=== PATIENT | male | born 1980 | race Caucasian/White ===

== ENCOUNTER 2016-11-22 20:00 | Emergency (ER) | payer MEDICAID, OTHER ==
[~2016-11-22] VITALS: Ht 170.2 cm; Wt 71.4 kg
[~2016-11-22 20:00] MED LIST: ALBU18HF INHALATION; ALBU8.5H3 INH; HYDR-3498 PO; MED4DP PO; OXYC-281 PO; RTPRO NEB
[2016-11-22 20:11] VITALS: Ht 170.2 cm; Wt 71.4 kg
--- NOTE | 2016-11-22 21:32 | ERD ---
ER Documentation Chief Complaint Date/Time DATE: 11/22/16 TIME: 21:25 Chief Complaint Out of lisinopril, ativan, zoloft, and adderall. Acting appropriate HPI 36 y/o male presents to ED for medication refill. States that he ran out of Zoloft, Ativan, Adderall, lisinopril. Added that he has an appointment with his physician who prescribes these medication this coming week but he needs at least 3 days of supply for this because he was told by the pharmacy to go to the ER and have an ER provider prescribe you with the said medications. Denies visual/auditory hallucinations/delusions. Not suicidal. Not homicidal. Has the capacity to decide for himself. Stated that he has good support system at home. Denies headache, loss of consciousness, dizziness, blurry vision, changes in vision, photophobia, facial pain, ear pain, throat pain, difficulty swallowing, neck pain, shoulder pain, chest pain, cough, hemoptysis, abdominal pain, back pain, loss of appetite, nausea, vomiting, hematochezia, diarrhea, constipation, urinary symptoms, bladder and bowel incontinences, extremity weakness, extremity tenderness, numbness or tingling sensation, difficulty walking, recent travel, recent exposure to illness, recent antibiotic use in the last 3 months, fever, chills. Allergy: NKA PMH: Hypertension, depression, anxiety, PTSD, ADHD (diagnosed at age of [age] years old). Medications: Ativan 2 mg twice daily, Adderall 40 mg twice daily, Zoloft 150 mg daily, lisinopril 20 mg daily. Surgery: Denies. Family history: Denies. 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 ROS All systems reviewed and are negative except as per history of present illness. Medications Home Meds Active Scripts Lisinopril* (Lisinopril*) 20 Mg Tablet, 20 MG PO DAILY, #7 TAB Prov:CLAUDIA SANTANA F 11/22/16 Sertraline Hcl* (Zoloft*) 100 Mg Tablet, 150 MG PO DAILY for 7 Days, #7 TAB Prov:PASILABANCLAUDIA F 11/22/16 Albuterol Sulfate* (Ventolin HFA*) 18 Gm Hfa.aer.ad, 2 PUFF INHALATION Q4H, #1 INHALER Prov:PRIETO BAUTISTA MD 11/18/15 Albuterol Sulfate* (Proair HFA*) 8.5 Gm Hfa.aer.ad, 2 PUFF INH Q4, #1 INHALER Prov:TRACY JENSEN 11/18/15 Albuterol Sulfate* (Proventil* Neb) 0.083% Neb, 2.5 MG NEB Q4 Y for SHORTNESS OF BREATH, #30 EA Prov:TRACY JENSEN 11/18/15 Methylprednisolone* (Medrol* DOSE PACK) 4 Mg/Dose-Pack Tab.ds.pk, 4 MG PO . DIRECTED for 6 Days, PACKET Prov:TRACY JENSEN 11/18/15 Oxycodone Hcl-Acetaminophen* (Percocet*) 5-325 Mg Tablet, 1 TAB PO Q4H Y for PAIN for 3 Days, TAB Prov:TRACY JENSEN 11/18/15 Hydrocodone Bit-Acetaminophen* ([place]*) 5-325 Mg Tab, 1 TAB PO Q6 Y for PAIN, # 7 TAB Prov:LEE ASIF MD 11/12/15 Allergies Allergies: Coded Allergies: chlorpromazine (Unverified Allergy, Unknown, 11/22/16) divalproex sodium (Unverified Allergy, Unknown, 11/22/16) quetiapine (Unverified Allergy, Unknown, 11/22/16) PMhx/Soc Medical and Surgical Hx: pt denies Surgical Hx History of Surgery: No Hx Psychiatric Problems: Yes (anxiety/PTSD) Hx Miscellaneous Medical Probl: No Hx Alcohol Use: No Hx Substance Use: No Hx Tobacco Use: No Smoking Status: Never smoker Physical Exam Vitals Vital Signs Date Time Temp Pulse Resp B/P Pulse Ox O2 Delivery O2 Flow Rate FiO2 11/22/16 21:43 99.0 20 142/91 97 Room Air 11/22/16 20:11 98.8 110 18 134/72 96 Physical Exam CONSTITUTIONAL: Well-appearing; well-nourished; in no apparent distress. HEAD: Normocephalic; atraumatic. EYES: Conjunctiva clear, sclera non-icteric, EOM intact. PERRL Ears: Hearing intact. EACs clear, TMs non-bulging, non-inflamed, translucent & mobile, ossicles normal appearance, No obstructions, no erythema, no discharges Nose: No obstructions. No polyps. No external lesions. Mucosa non-inflamed. No external lesions, septum and turbinates normal. No rhinorrhea. No discharges. Frontal sinus is non-tender to palpation. Maxillary sinus is non-tender to palpation. MOUTH: Moist mucous membranes, no lesion, no obstructions, no vesicles, no thrush, patent airway Throat: Uvula in midline. Right tonsil is +1 with no erythema, no exudate. Left tonsil is +1 with no erythema, no exudate. Tolerating secretions well. Good gag reflex. Patent airway. Neck: Supple, without lesions, bruits, or adenopathy. No mass. Thyroid non- enlarged and non-tender to palpation. CHEST: Symmetrical chest. Respirations even and not labored. No retractions noted. CARDIOVASCULAR: Normal S1, S2. RRR. No murmurs, gallops. RESPIRATORY: Normal chest excursion with respiration; breath sounds clear and equal bilaterally; no wheezes, rhonchi, or rales. Breathing even and unlabored. Speaking in clear, full, and complete sentences w/ ease. ABDOMEN: Normal bowel sounds normal. Soft, round, non-distended, non-guarding, no tenderness, no rebound, no organomegaly, no masses, no pulsating abdominal mass. No hernia. No peritoneal signs. : No CVA tenderness. BACK: Symmetrical shoulder. Spine is midline without deformity, tenderness. No evidence of trauma or deformity. PELVIS: Stable pelvis. No evidence of trauma or deformity. MUSCULOSKELETAL: Normal gait and station. No misalignment, asymmetry, crepitation, defects, tenderness, masses, effusions, decreased range of motion, instability, atrophy or abnormal strength or tone in the head, neck, spine, ribs , pelvis or extremities. No calf tenderness. NEUROVASCULAR: Distal pulses are present. Pedal pulse are present, equal, and normal. Capillary refills are < 2 seconds. NEUROLOGIC: Alert and oriented x4. Speaks full and clear sentences. Cranial Nerves II-XII normal. Sensation to pain, touch, and proprioception normal. Grossly unremarkable. No neurologic deficits. Romberg test is negative. PSYCHOLOGICAL: The patients mood and manner are appropriate. No hallucinations , delusions. Not SI. Not HI. Has the capacity to decide for self SKIN: Normal for age and ethnicity; warm; dry; good turgor; no apparent lesions or exudates. No rashes, hives, discoloration. Intact. Procedures/MDM Examination: Please see physical examination. Disease process, medical treatment was explained to the patient. He verbalized understanding and agreed with the medical treatment, and follow-up care. Treatment: None. Re-evaluation: None. Consultation: None. Differential diagnosis: Medication refill. Medical decision [id number] y/o male presents to ED for medication refill. States that he ran out of Zoloft, Ativan, Adderall, lisinopril. Added that he has an appointment with his physician who prescribes these medication this coming week but he needs at least 3 days of supply for this because he was told by the pharmacy to go to the ER and have an ER provider prescribe you with the said medications. Denies visual/auditory hallucinations/delusions. Not suicidal. Not homicidal. Has the capacity to decide for himself. Stated that he has good support system at home. Patient's complaint, patient's history about his complaint, my physical findings are consistent with my final diagnosis of medication refill. I explained to him that I cannot refill or prescribe him with Adderall, Ativan. I also informed him that I could only prescribe him with Zoloft and lisinopril but patient still insisting for me to prescribe him with Adderall and Ativan as he was told by the pharmacy that he was just in this afternoon to go to the ER to ask for a prescription. Primary nurse stated that the patient took the discharge paper and the prescription of Zoloft and lisinopril but refuses to sign the discharge paper stating that he does not need to sign any paper. Primary nurse also stated that patient was not suicidal. Not homicidal. Has the capacity to decide for himself. Medications prescribed are the following: Zoloft. Lisinopril. Patient made aware of the side effects and adverse reactions of the medications prescribed. Instructed on when to seek emergent and medical attention in case allergic/anaphylactic reactions or severe side effects and or adverse reactions to medications. Patient and family member verbalized understanding. Instructed to follow-up with his PCP in 24 hours. Instructed to Call 911 for chest pain, shortness of breath. Advised to come back here in ED as soon as possible for severity of symptoms which includes but not limited to: any new symptoms; shortness of breath/difficulty of breathing; cardiovascular changes; severe gastrointestinal symptoms; signs and symptoms of bleeding and or infection; signs of compartment syndrome/neurovascular changes; neurological changes/deficits. Patient and family member verbalized understanding. Departure Condition: Good Additional Instructions: Follow-up with PCP in the next 24-48 hours. CLAUDIA SANTANA Nov 22, 2016 21:32 Departure Condition: Good Additional Instructions: Follow-up with PCP in the next 24-48 hours. CLAUDIA SANTANA Nov 22, 2016 21:32 CLAUDIA SANTANA Nov 22, 2016 21:32
[2016-11-22] MEDS ORDERED: SERT100T PO (21:34)
[2016-11-22] MEDS ORDERED: LISI20TA11 PO (21:34)
[2016-11-22 21:43] VITALS: BP 142/91; RESP 20; TEMP 99
== END 2016-11-22 22:01 | disposition left against medical advice (07) ==
LOC: FTE 20:00
DX: Z76.0 Encounter for issue of repeat prescription (principal); I10 Essential (primary) hypertension; J45.909 Unspecified asthma, uncomplicated
CPT/HCPCS: 99281